=== PATIENT | male | born 1995 | race Caucasian/White ===

== ENCOUNTER → 2020-09-16 | Outpatient (CLI) | payer BC ==
[2020-09-16 15:59] VITALS: BMI 35.9
== END | disposition home or self-care (01) ==
LOC: DBWHC3 14:03
PROVIDERS: ATTEND Family Medicine
DX: Z48.815 Encounter for surgical aftercare following surgery on the digestive system (principal)
CPT/HCPCS: 97803

== ENCOUNTER → 2020-09-16 | Outpatient (CLI) | payer BC ==
--- NOTE | 2020-09-16 14:48 | P.HPBAR ---
Bariatric H&P - History & Physicial H&P Date: 09/16/20 History & Physicial: Visit/CC: Patient initial contact: Initial weight: Initial weight in pounds: Height: Initial BMI: Last weight: Current weight: Current weight in pounds: Current BMI: [place] body weight (based on NIH guidelines): Excess body weight loss: The patient is a 25 year-old M who presents for Bariatric Assessment. Was in [facility] and was 14 to 15 years old. Highest weight 395 pounds. Lowest 204 now with weight gained 276. He was his lowest in 2017. He had the sleeve. He was apart of their research program for 4 weeks, 3 months, 2 years and 5 years. Needs bariatric labs. No dysphagia. No heartburn. He had skin removal surgeries at least 8! Past Medical History History of Any Multi-Drug Resistant Organisms: None Reported Past Surgical History: Bariatric Surgery Additional Past Surgical History / Comment(s): sleeve gastrectomy [facility] 2012 panniculectomy Past Anesthesia/Blood Transfusion Reactions: No Reported Reaction Past Psychological History: No Psychological Hx Reported Smoking Status: Never smoker Past Alcohol Use History: None Reported Past Drug Use History: None Reported Bariatric Checklist Checklist: Plan: Checklist: EGD: 1. Hiatal hernia: 2. H. Pylori: HgbA1c: Vitamin D: Smoking: Primary care physician referral: Psychiatry clearance: Cardiology clearance: Sleep study: Diet journal: VTE risk score: VTE risk level: Rehab needs at discharge:
[2020-09-16 15:04] VITALS: BP 138/81; PULSE 103; RESP 16; TEMP 99.2; BMI 36.4
== END ==
LOC: BARWHC3 14:06
PROVIDERS: ATTEND Surgery Plastic and Reconstructive Surgery
DX: E66.01 Morbid (severe) obesity due to excess calories (principal); Z46.51 Encounter for fitting and adjustment of gastric lap band
CPT/HCPCS: 99211

== ENCOUNTER → 2020-09-17 | Outpatient (CLI) | payer BC ==
[2020-09-17 15:16] LABS: HGB 15.1 g/dL (13.0-17.0); MCH 27.8 pg (27.0-32.0); MCHC 32.1 g/dL (32.0-37.0); MCV 86.6 fL (80.0-97.0); Mean Platelet Volume 11.9 fL (9.5-12.2); Platelet Count 183 X 10*3/uL (140-440); RBC 5.43 X 10*6/uL (4.40-5.60); RDW 13.2 % (11.5-14.5); WBC 5.87 X 10*3/uL (4.50-10.00)
[2020-09-17 15:27] LABS: INR 1.03 (0.90-1.11); Partial Thromboplastin Time 30.4 sec (23.5-31.0); Prothrombin Time 11.2 sec (9.9-11.9)
[2020-09-17 18:58] LABS: Hemoglobin A1C 5.1 % (4.0-6.0)
[2020-09-18 02:05] LABS: % Iron Saturation 21.45 (15.00-50.00); African American GFR (CKD) 137.1 (60.0-200.0); Albumin 4.6 g/dL (3.80-4.90); Albumin/Globulin Ratio 2.09 (1.60-3.17); Anion Gap 11.5 mmol/L (4.00-12.00); BUN/Creat Ratio 14.44 Ratio (12.00-20.00); Calcium 9.8 mg/dL (8.7-10.3); Carbon Dioxide 26.5 mmol/L (21.6-31.8); Chol/HDL Ratio 3.9; Globulin 2.2 g/dL (1.6-3.3); LDL Cholesterol,Calculated 107.4 mg/dL (0.0-131.0); Non-African American GFR(CKD) 118.3 (60.0-200.0); Phosphorus 3.2 mg/dL (2.4-5.1); Potassium 4.1 mmol/L (3.5-5.5); Total Bilirubin 0.4 mg/dL (0.3-1.2); Total Protein 6.8 g/dL (6.2-8.2); VLDL Calculation 14.6 mg/dL (5.00-40.00)
[2020-09-18 02:23] LABS: Ferritin 9.3 ng/mL (22.0-322.0); Folate, Serum 10.7 ng/mL
[2020-09-18 12:18] LABS: Zinc, Serum 49 ug/dL (60-130)
[2020-09-20 18:32] LABS: Selenium 119 mcg/L (63-160)
[2020-09-21 07:07] LABS: Vitamin A 36 ug/dL (38-106)
[2020-09-21 07:31] LABS: Vit B1(Thiamine) 61 ug/L (38-122)
== END | disposition home or self-care (01) ==
LOC: LABWHC1 09:15
PROVIDERS: ATTEND Surgery Plastic and Reconstructive Surgery
DX: D50.8 Other iron deficiency anemias (principal); K90.89 Other intestinal malabsorption; E55.9 Vitamin D deficiency, unspecified; K74.1 Hepatic sclerosis; N19 Unspecified kidney failure; K50.90 Crohn's disease, unspecified, without complications; E89.1 Postprocedural hypoinsulinemia; E66.01 Morbid (severe) obesity due to excess calories
CPT/HCPCS: 36415; 80053; 80061; 82306; 82525; 82607; 82728; 82746; 83036; 83540; 83550; 83735; 83970; 84100; 84134; 84255; 84425; 84443; 84590; 84630; 85027; 85610; 85730

== ENCOUNTER → 2020-12-16 | Outpatient (CLI) | payer BC ==
[2020-12-16 16:48] VITALS: BMI 37.2
== END ==
LOC: DBWHC3 14:03
PROVIDERS: ATTEND Family Medicine
DX: E66.9 Obesity, unspecified (principal); Z98.84 Bariatric surgery status; Z88.0 Allergy status to penicillin; Z88.5 Allergy status to narcotic agent; Z68.37 Body mass index [BMI] 37.0-37.9, adult
CPT/HCPCS: 97803